=== PATIENT | female | born 1980 | race African-American/Black ===

== ENCOUNTER 2016-10-22 14:11 | Emergency (ER) | payer SELFPAY ==
[~2016-10-22] VITALS: Ht 162.6 cm; Wt 78.0 kg
[~2016-10-22 14:11] MED LIST: IBUPROFEN600 MG PO; LORTAB 5/3255 MG PO; NO
[2016-10-22 16:04] LABS: HEMATOCRIT 31.9 % (37.0-47.0); HEMOGLOBIN 10.6 g/dl (12.0-16.0); IMMATURE GRANULOCYTES 0.7 % (0.0-1.0); MEAN CELL VOLUME 69.7 fL CALC (80.0-100.0); MEAN CORPUSCULAR HGB 23.1 pG CALC (26.0-32.0); MEAN CORPUSCULAR HGB CONC 33.2 g/L CALC (32.0-36.0); NEUT# 6.48 thou/uL (2.00-7.15); RED BLOOD COUNT 4.58 mill/uL (4.20-5.60); RED CELL DISTRI WIDTH 14.8 % (11.5-15.5)
[2016-10-22 16:23] LABS: ALBUMIN 3.8 g/dL (3.2-5.0); ALKALINE PHOSPHATASE 57 u/l (38-126); ANION GAP 12 (6-22 (CALC)); BILIRUBIN, TOTAL 0.2 mg/dL (0.0-1.4); BUN 9 mg/dL (7-17); BUN/CREATININE RATIO 15 (12-20 (CALC)); CALCIUM 9.3 mg/dL (8.4-10.2); CARBON DIOXIDE 25 mmol/l (22-30); CHLORIDE 103 mmol/l (95-108); CREATININE 0.6 mg/dL (0.5-1.0); GFR > 60 ML/MIN (>=60 (CALC)); GFR FOR AFR.AMER. > 60 ML/MIN (>=60 (CALC)); GLUCOSE 81 mg/dL (65-105); POTASSIUM 3.4 mmol/l (3.5-5.1); SGOT/AST 18 u/l (14-36); SGPT/ALT 24 u/l (9-52); SODIUM 137 mmol/l (137-146); TOTAL PROTEIN 7.5 g/dL (6.3-8.2)
[2016-10-22 16:59] LABS: URINE BILIRUBIN - DIPSTICK NEGATIVE (NEGATIVE); URINE BLOOD DIPSTICK MODERATE (NEGATIVE); URINE COLOR YELLOW; URINE GLUCOSE - DIPSTICK NEGATIVE (NEGATIVE); URINE KETONE NEGATIVE (NEGATIVE); URINE NITRITE - DIPSTICK NEGATIVE (Negative); URINE PROTEIN - DIPSTICK NEGATIVE (NEG-TRACE); URINE SPECIFIC GRAVITY >=1.030; URINE UROBILINOGEN - DIPSTICK 0.2 E.U./dL (0.2)
[2016-10-22 17:00] LABS: URINE CLARITY HAZY; URINE LEUK ESTERASE SMALL (NEGATIVE)
[2016-10-22] MEDS ORDERED: MACROBID100 MG PO (17:08)
[2016-10-22 17:17] LABS: URINE BACTERIA RARE hpf; URINE SQUAMOUS EPITHELIAL CELL FEW EPI/hpf (0-FEW)
[2016-10-22 18:30] VITALS: BP 112/72
== END 2016-10-22 19:00 | disposition home or self-care (01) | DRG 781 ==
LOC: ED 14:11
PROVIDERS: Emergency Medicine
DX: O23.92 Unspecified genitourinary tract infection in pregnancy, second trimester (principal); O26.892 Other specified pregnancy related conditions, second trimester; F14.90 Cocaine use, unspecified, uncomplicated; Z3A.15 15 weeks gestation of pregnancy

== ENCOUNTER 2017-04-08 06:45 | Inpatient (IN) | payer OTHER ==
[2017-04-08] VITALS (13 sets, daily range): BP systolic 108–123; BP diastolic 50–86
[~2017-04-08] VITALS: Ht 160 cm; Wt 83.0 kg
[~2017-04-08 06:45] MED LIST changes: +MACROBID100 MG PO
[2017-04-08 07:08] LABS: URINE BILIRUBIN - DIPSTICK NEGATIVE (NEGATIVE); URINE BLOOD DIPSTICK SMALL (NEGATIVE); URINE CLARITY SLIGHT CLOUDY; URINE COLOR YELLOW; URINE GLUCOSE - DIPSTICK NEGATIVE (NEGATIVE); URINE KETONE NEGATIVE (NEGATIVE); URINE LEUK ESTERASE TRACE (NEGATIVE); URINE NITRITE - DIPSTICK NEGATIVE (Negative); URINE PROTEIN - DIPSTICK TRACE mg/dL (NEG-TRACE); URINE SPECIFIC GRAVITY <=1.005; URINE UROBILINOGEN - DIPSTICK 0.2 E.U./dL (0.2)
[2017-04-08 07:12] LABS: BARBITURATES NEGATIVE (NEGATIVE); COCAINE POSITIVE (NEGATIVE); METHADONE NEGATIVE (NEGATIVE); TETRAHYDROCANNABIONOL NEGATIVE (NEGATIVE); TRICYLIC ANTIDEPRESSANTS NEGATIVE (NEGATIVE)
[2017-04-08 07:13] LABS: OXCYCODONE NEGATIVE (NEGATIVE)
[2017-04-08 07:27] LABS: URINE RBC 0-2 RBC/hpf (0-5)
[2017-04-08 07:28] LABS: URINE BACTERIA FEW hpf; URINE SQUAMOUS EPITHELIAL CELL FEW EPI/hpf (0-FEW)
[2017-04-08 07:54] LABS: HEMATOCRIT 29.5 % (37.0-47.0); HEMOGLOBIN 9.6 g/dl (12.0-16.0); IMMATURE GRANULOCYTES 0.9 % (0.0-1.0); MEAN CELL VOLUME 69.9 fL CALC (80.0-100.0); MEAN CORPUSCULAR HGB 22.7 pG CALC (26.0-32.0); MEAN CORPUSCULAR HGB CONC 32.5 g/L CALC (32.0-36.0); NEUT# 6.52 thou/uL (2.00-7.15); RED BLOOD COUNT 4.22 mill/uL (4.20-5.60); RED CELL DISTRI WIDTH 14.6 % (11.5-15.5)
[2017-04-08 08:31] LABS: ALBUMIN 3.5 g/dL (3.2-5.0); ALKALINE PHOSPHATASE 170 u/l (38-126); ANION GAP 12 (6-22 (CALC)); BILIRUBIN, TOTAL 0.5 mg/dL (0.0-1.4); BUN 7 mg/dL (7-17); BUN/CREATININE RATIO 12 (12-20 (CALC)); CALCIUM 9.3 mg/dL (8.4-10.2); CARBON DIOXIDE 21 mmol/l (22-30); CHLORIDE 107 mmol/l (95-108); CREATININE 0.6 mg/dL (0.5-1.0); GFR > 60 ML/MIN (>=60 (CALC)); GFR FOR AFR.AMER. > 60 ML/MIN (>=60 (CALC)); GLUCOSE 74 mg/dL (65-105); POTASSIUM 4.2 mmol/l (3.5-5.1); SGOT/AST 29 u/l (14-36); SGPT/ALT 42 u/l (9-52); SODIUM 136 mmol/l (137-146); TOTAL PROTEIN 6.7 g/dL (6.3-8.2)
[2017-04-08 15:45] LABS: HEMATOCRIT 26.5 % (37.0-47.0); HEMOGLOBIN 8.8 g/dl (12.0-16.0); IMMATURE GRANULOCYTES 0.6 % (0.0-1.0); MEAN CELL VOLUME 70.3 fL CALC (80.0-100.0); MEAN CORPUSCULAR HGB 23.3 pG CALC (26.0-32.0); MEAN CORPUSCULAR HGB CONC 33.2 g/L CALC (32.0-36.0); NEUT# 8.22 thou/uL (2.00-7.15); RED BLOOD COUNT 3.77 mill/uL (4.20-5.60); RED CELL DISTRI WIDTH 14.7 % (11.5-15.5)
[2017-04-09 00:22] VITALS: BP 117/55
[2017-04-09 05:20] VITALS: BP 113/61
[2017-04-09 12:30] VITALS: BP 110/58
[2017-04-09 18:12] VITALS: BP 118/72
[2017-04-09 21:00] VITALS: BP 110/77
[2017-04-10 04:15] VITALS: BP 112/67
[2017-04-10 07:24] VITALS: BP 115/66
[2017-04-10] MEDS ORDERED: IBUPROFEN600 MG PO (08:55)
[2017-04-10] MEDS ORDERED: NORCO1 TA2 PO (08:56)
[2017-04-10] MEDS ORDERED: FERR SULFATE325 MG PO (08:59)
== END 2017-04-10 14:45 | disposition home or self-care (01) | DRG 765 ==
LOC: OB 06:45 → OBOP 06:45 → OB 07:10
PROC: 10D00Z0 Extraction of Products of Conception, High, Open Approach (ICD-10-PCS; principal; 2017-04-08)
PROC: 0UB70ZZ Excision of Bilateral Fallopian Tubes, Open Approach (ICD-10-PCS; 2017-04-08)
DX: O34.212 Maternal care for vertical scar from previous cesarean delivery (principal); O99.324 Drug use complicating childbirth; N85.8 Other specified noninflammatory disorders of uterus; F14.90 Cocaine use, unspecified, uncomplicated; D57.3 Sickle-cell trait; D50.9 Iron deficiency anemia, unspecified; O99.02 Anemia complicating childbirth; O75.82 Onset (spontaneous) of labor after 37 completed weeks of gestation but before 39 completed weeks gestation, with delivery by (planned) cesarean section; Z3A.37 37 weeks gestation of pregnancy; Z37.0 Single live birth
CPT/HCPCS: J2540

== ENCOUNTER 2018-01-19 18:07 | Emergency (ER) | payer SELFPAY ==
[~2018-01-19] VITALS: Ht 160 cm; Wt 90.0 kg
[~2018-01-19 18:07] MED LIST changes: +FERR SULFATE325 MG PO; +NORCO1 TA2 PO
[2018-01-19] MEDS ORDERED: ULTRAM50 M1 PO (18:23)
[2018-01-19] MEDS ORDERED: VALTREX1 GM PO (18:23)
[2018-01-19 18:25] VITALS: BP 144/67
== END 2018-01-19 18:25 | disposition home or self-care (01) | DRG 596 ==
LOC: ED 18:07
DX: B02.9 Zoster without complications (principal); F17.210 Nicotine dependence, cigarettes, uncomplicated

== ENCOUNTER 2019-10-08 | Emergency (ER) | payer SELFPAY ==
[~2019-10-08] MED LIST changes: +ULTRAM50 M1 PO; +VALTREX1 GM PO
[2019-10-08 17:03] LABS: URINE BILIRUBIN - DIPSTICK NEGATIVE (NEGATIVE); URINE BLOOD DIPSTICK SMALL (NEGATIVE); URINE CLARITY CLEAR; URINE COLOR YELLOW; URINE GLUCOSE - DIPSTICK NEGATIVE (NEGATIVE); URINE KETONE NEGATIVE (NEGATIVE); URINE LEUK ESTERASE NEGATIVE (Negative); URINE NITRITE - DIPSTICK NEGATIVE (Negative); URINE PH 5.5 (4.5-8.0); URINE PROTEIN - DIPSTICK TRACE mg/dL (NEG-TRACE); URINE SPECIFIC GRAVITY >=1.030
[2019-10-08 17:12] LABS: HEMATOCRIT 36.6 % (37.0-47.0); HEMOGLOBIN 11.7 g/dl (12.0-16.0); IMMATURE GRANULOCYTES 0.4 % (0.0-5.0); MEAN CELL VOLUME 68.8 fL CALC (80.0-100.0); NEUT# 1.7 thou/uL (2.00-7.15); RED BLOOD COUNT 5.32 mill/uL (4.20-5.60); RED CELL DISTRI WIDTH 15.7 % (11.5-15.5)
[2019-10-08 17:22] LABS: URINE SQUAMOUS EPITHELIAL CELL FEW EPI/hpf (0-FEW)
[2019-10-08 17:54] LABS: ALBUMIN 3.7 g/dL (3.2-5.0); ALKALINE PHOSPHATASE 162 u/l (38-126); BILIRUBIN, TOTAL 0.4 mg/dL (0.0-1.4); BUN 8 mg/dL (7-17); BUN/CREATININE RATIO 10 (12-20 (CALC)); CHLORIDE 103 mmol/l (95-108); CREATININE 0.9 mg/dL (0.5-1.0); GFR > 60 ML/MIN (>=60 (CALC)); GFR FOR AFR.AMER. > 60 ML/MIN (>=60 (CALC)); POTASSIUM 3.5 mmol/l (3.5-5.1); SODIUM 138 mmol/l (137-146); TOTAL PROTEIN 7.3 g/dL (6.3-8.2)
[2019-10-08 17:55] LABS: ANION GAP 12 (6-22 (CALC)); CARBON DIOXIDE 27 mmol/l (22-30); SGOT/AST 133 u/l (14-36)
== END 2019-10-08 18:32 | disposition home or self-care (01) | DRG 552 ==
DX: S16.1XXA Strain of muscle, fascia and tendon at neck level, initial encounter (principal); F17.210 Nicotine dependence, cigarettes, uncomplicated; X58.XXXA Exposure to other specified factors, initial encounter

== ENCOUNTER 2022-10-25 17:37 | Emergency (ER) | payer SELFPAY ==
[~2022-10-25] VITALS: Ht 160 cm; Wt 73.0 kg
[2022-10-25 18:13] VITALS: BP 129/83
[2022-10-25] MEDS ORDERED: BACTRIM DS1 TAB PO (18:47)
[2022-10-25] MEDS ORDERED: CEPHALEXIN500 MG PO (18:47)
[2022-10-25 19:01] VITALS: BP 138/88
[2022-10-25 19:23] VITALS: BP 138/88
== END 2022-10-25 19:33 | disposition home or self-care (01) | DRG 761 ==
LOC: ED 17:37
PROC: 0U9LX0Z Drainage of Vestibular Gland with Drainage Device, External Approach (ICD-10-PCS; principal; 2022-10-25)
DX: N75.0 Cyst of Bartholin's gland (principal); D57.3 Sickle-cell trait; F17.210 Nicotine dependence, cigarettes, uncomplicated

== ENCOUNTER 2022-10-27 12:47 | Emergency (ER) | payer SELFPAY ==
[~2022-10-27] VITALS: Ht 160 cm; Wt 68.0 kg
[~2022-10-27 12:47] MED LIST changes: +BACTRIM DS1 TAB PO; +CEPHALEXIN500 MG PO
[2022-10-27 13:02] VITALS: BP 127/85
[2022-10-27] MEDS ORDERED: TRAMADOL HYDROC50 M1 PO (13:31)
[2022-10-27 13:50] VITALS: BP 127/85
== END 2022-10-27 13:57 | disposition home or self-care (01) | DRG 951 ==
LOC: ED 12:47
DX: Z48.01 Encounter for change or removal of surgical wound dressing (principal)

== ENCOUNTER 2022-11-12 16:57 | Emergency (ER) | payer SELFPAY ==
[~2022-11-12] VITALS: Ht 160 cm; Wt 71.0 kg
[~2022-11-12 16:57] MED LIST changes: +TRAMADOL HYDROC50 M1 PO
[2022-11-12 17:07] VITALS: BP 131/83
[2022-11-12 17:15] VITALS: BP 143/87
[2022-11-12] MEDS ORDERED: BACTRIM DS1 TAB PO (17:20)
[2022-11-12 17:56] VITALS: BP 143/87
== END 2022-11-12 18:02 | disposition home or self-care (01) | DRG 761 ==
LOC: ED 16:57
PROC: 0U9LXZZ Drainage of Vestibular Gland, External Approach (ICD-10-PCS; principal; 2022-11-12)
DX: N75.0 Cyst of Bartholin's gland (principal); D57.3 Sickle-cell trait; F17.200 Nicotine dependence, unspecified, uncomplicated

== ENCOUNTER 2022-11-15 10:01 | Emergency (ER) | payer SELFPAY ==
[~2022-11-15] VITALS: Ht 160 cm; Wt 703.0 kg
[2022-11-15 10:17] VITALS: BP 119/81
[2022-11-15 10:30] VITALS: BP 107/76
[2022-11-15] MEDS ORDERED: BACTRIM DS1 TAB PO (11:44)
[2022-11-15 12:02] VITALS: BP 107/76
== END 2022-11-15 12:02 | disposition home or self-care (01) | DRG 951 ==
LOC: ED 10:01
DX: Z48.01 Encounter for change or removal of surgical wound dressing (principal); D57.3 Sickle-cell trait; F17.200 Nicotine dependence, unspecified, uncomplicated

== ENCOUNTER 2023-02-28 05:40 | Emergency (ER) | payer SELFPAY ==
[~2023-02-28] VITALS: Ht 160 cm; Wt 68.0 kg
[2023-02-28 05:51] VITALS: BP 142/92
[2023-02-28 06:00] VITALS: BP 119/78
[2023-02-28 06:16] VITALS: BP 133/94
[2023-02-28] MEDS ORDERED: BACTRIM DS1 TAB PO (06:17)
[2023-02-28 06:23] VITALS: BP 133/94
== END 2023-02-28 06:26 | disposition home or self-care (01) | DRG 761 ==
LOC: ED 05:40
PROC: 0U9LXZZ Drainage of Vestibular Gland, External Approach (ICD-10-PCS; principal; 2023-02-28)
DX: N75.0 Cyst of Bartholin's gland (principal); D57.3 Sickle-cell trait; F17.200 Nicotine dependence, unspecified, uncomplicated

== ENCOUNTER 2024-10-22 14:15 | Emergency (ER) | payer OTHER ==
[~2024-10-22] VITALS: Ht 160 cm; Wt 72.0 kg
[2024-10-22 14:23] VITALS: BP 133/95
[2024-10-22] MEDS ORDERED: BACTRIM DS1 TAB PO (14:38)
[2024-10-22 14:53] VITALS: BP 133/95
[2024-10-23] MEDS ORDERED: EC-NAPROXEN500 MG PO (09:42)
== END 2024-10-22 15:05 | disposition home or self-care (01) ==
LOC: ED 14:15
DX: N75.0 Cyst of Bartholin's gland (principal); D57.3 Sickle-cell trait; F17.200 Nicotine dependence, unspecified, uncomplicated

== ENCOUNTER 2024-10-23 08:36 | Emergency (ER) | payer OTHER ==
[~2024-10-23] VITALS: Ht 160 cm; Wt 68.0 kg
[2024-10-23 08:47] VITALS: BP 141/90
[2024-10-23 09:00] VITALS: BP 135/96
[2024-10-23] MEDS ORDERED: KETOROLAC TROMETHAMINE 30 MG/ML SDV IM ONE (09:05)
[2024-10-23] MEDS ORDERED: EC-NAPROXEN500 MG PO (09:42)
[2024-10-23 09:51] VITALS: BP 135/96
== END 2024-10-23 10:24 | disposition home or self-care (01) ==
LOC: ED 08:36
DX: M25.572 Pain in left ankle and joints of left foot (principal); D57.3 Sickle-cell trait; F17.200 Nicotine dependence, unspecified, uncomplicated